=== PATIENT | male | born 1955 | race Caucasian/White ===

== ENCOUNTER 2016-08-10 16:46 | Observation (INO) | payer MEDICARE, OTHER ==
[~2016-08-10] VITALS: Ht 172.7 cm; Wt 77.1 kg
[2016-08-10 16:53] VITALS: BP 133/95
--- NOTE | 2016-08-10 18:12 | NUR ---
PT BIBA TO BED 8 AT THIS TIME.
[2016-08-10] MEDS ORDERED: MULTIVITAMIN-12 10 ML, THIAMINE 100 MG, MAGNESIUM SULFATE 50% 2,000 MG, FOLIC ACID 5 MG... IV ONE ×5 (18:15)
--- NOTE | 2016-08-10 18:16 | NUR ---
61M BIBA C/O ALCOHOL INTOXICATION; PER EMS, PT FOUND "SLEEPING ON THE SIDEWALK" AND "SOMEONE CALLED 911"; PT STATES DRANK 3 BEERS TODAY; A&OX4, PERRL, W/ TACHYCARDIA ON THE MONITOR AT THIS TIME; BL LUNG SOUNDS CLEAR, RR EVEN/UNLABORED, SKIN IS WARM/DRY/INTACT AT THIS TIME; PT DENIES ANY PAIN, N/V/D AT THIS TIME; PT AMBULATORY W/ UNSTEADY GAIT AT THIS TIME; CALM/COOPERATIVE; PT RESTING IN BED W/ HOB ELEVATED AND IN LOWEST POSITION; POSITIONED FOR COMFORT; ER MD MADE AWARE OF STATUS. WILL CONTINUE TO MONITOR.
[2016-08-10] MEDS ORDERED: MULTIVITAMIN-12 10 ML, THIAMINE 100 MG, MAGNESIUM SULFATE 50% 2,000 MG, FOLIC ACID 5 MG... IV SCH ×5 (18:19)
[2016-08-10 18:41] LABS: BASOPHILS # (AUTO) 0.1 K/uL (0.00-0.22); EOSINOPHILS # (AUTO) 0.1 K/uL (0-0.4); HEMOGLOBIN 13.9 g/dL (12.0-18.0); LYMPHOCYTES # (AUTO) 2.4 K/uL (2.0-11.5); LYMPHOCYTES % (AUTO) 42.9 % (20.5-51.1); MEAN CORPUSCULAR HEMOGLOBIN 34 pg (27-31); MEAN CORPUSCULAR HGB CONC 33 g/dL (33-37); MEAN CORPUSCULAR VOLUME 102 fL (80-94); MONOCYTES # (AUTO) 0.4 K/uL (0.8-1.0); NEUTROPHILS # (AUTO) 2.5 K/uL (1.8-7.7); NEUTROPHILS % (AUTO) 47.1 % (42.2-75.2); PLATELET COUNT (AUTO) 206 K/uL (140-450); RED BLOOD CELL COUNT(AUTO) 4.13 MIL/uL (4.20-6.10); RED CELL DISTRIBUTION WIDTH 13.4 % (11.6-13.7); WHITE BLOOD COUNT (AUTO) 5.5 K/uL (4.8-10.8)
[2016-08-10 18:55] LABS: CALCIUM 8.6 mg/dL (8.5-10.1); CARBON DIOXIDE 26.8 mmol/L (21-32); CREATININE 1.1 mg/dL (0.6-1.3); POTASSIUM 3.8 mmol/L (3.5-5.1)
[2016-08-10 19:00] LABS: AMPHETAMINE, URINE NEG. ng/ml (NEG <=1000); BARBITURATE, URINE NEG. ng/ml (NEG <=200); BENZODIAZEPINE, URINE NEG. ng/mL (NEG <=200); CANNABINOID, URINE NEG. ng/mL (NEG <=50); COCAINE, URINE NEG. ng/mL (NEG <=300); OPIATE, URINE NEG. ng/mL (NEG <=2000); PHENCYCLIDINE SCREEN,URINE NEG. ng/mL (NEG <=25)
[2016-08-10 19:00] LABS: ALBUMIN 3.6 g/dL (3.4-5.0); TOTAL BILIRUBIN 0.4 mg/dL (0.0-1.0); TOTAL PROTEIN, SERUM 7.1 g/dL (6.4-8.2)
--- NOTE | 2016-08-10 19:08 | NUR ---
Pt report given to MAR DIEZ. Transfer of care at this time.
--- NOTE | 2016-08-10 19:15 | NUR ---
RECEIVED REPORT FROM ROSALBA MANUEL.
[2016-08-10] MEDS: NACL 0.9% 1,000 ML IV SCH (20:08)
[2016-08-10] MEDS ORDERED: LORazepam 2 MG/ML VIAL IVP PRN (20:10)
[2016-08-10] MEDS ORDERED: ACETAMINOPHEN 325 MG TAB PO PRN (20:10)
[2016-08-10] MEDS ORDERED: ONDANSETRON 4 MG/2 ML VIAL IVP PRN (20:10)
--- NOTE | 2016-08-10 20:45 | NUR ---
Patient will be admitted to care of DR SHARIF. Admited to TELE. Will go to room 108A. Belongings list completed. Report to PAKO MANUEL.
--- NOTE | 2016-08-10 20:45 | NUR ---
Note nathanael in EDM - 08/10/16 at 2157 by CHU Patient will be admitted to care of DR SHARIF. Admited to TELE. Will go to room 108A. Belongings list completed. Report to TRACEY MANUEL.
[2016-08-10 21:00] VITALS: BP 131/77
--- NOTE | 2016-08-10 21:00 | NUR ---
Admitted from ER TO [facility] FOR 23 HOUR OBSERVATION , with chief complaint of ALCOHOL INTOXICATION , 61 y/o ,Male, Cooperative, AWAKE, A/OX3 WITH FORGETFULNESS, ALCOHOL BREATH NOTED. RESPIRATION EVEN AND UNLABORED. IV BANANA BAG INFUSING AT 250 ML/HR RIGHT AC G18. STATED ABLE TO AMBULATE FOR SHORT DISTANCES ONLY BY HIMSELF. HEAD TO TOE ASSESSMENT DONE WITH CHARGE NURSE ALICJA, SKIN INTACT. DENIES PAIN 0/10.oriented to call light, bed, phone,television, bathroom, smoking policy,visiting hours, procedures, ID bracelet on. Belongings list checked.
--- NOTE | 2016-08-10 22:00 | NUR ---
Patient's Plan of Care was discussed and reviewed with CLAIM APPROVER: PAKO FERNÁNDEZ
--- NOTE | 2016-08-10 23:30 | NUR ---
ATE 100% OF SANDWICH GIVEN. BACK TO SLEEP AFTER EATING.
[2016-08-11] VITALS: BP 135/75
[2016-08-11] MEDS: NACL 0.9% 1,000 ML IV SCH ×2 (02:23→10:04)
[2016-08-11 06:30] LABS: BASOPHILS # (AUTO) 0.1 K/uL (0.00-0.22); BASOPHILS % (AUTO) 1.3 % (0.0-2.0); EOSINOPHILS % (AUTO) 0.7 % (0.0-4.0); HEMATOCRIT 41.1 % (36-52); HEMOGLOBIN 13.8 g/dL (12.0-18.0); LYMPHOCYTES # (AUTO) 2.1 K/uL (2.0-11.5); LYMPHOCYTES % (AUTO) 36.5 % (20.5-51.1); MEAN CORPUSCULAR HEMOGLOBIN 34 pg (27-31); MEAN CORPUSCULAR HGB CONC 33 g/dL (33-37); MEAN CORPUSCULAR VOLUME 101 fL (80-94); MONOCYTES # (AUTO) 0.7 K/uL (0.8-1.0); MONOCYTES % (AUTO) 13.1 % (1.7-9.3); NEUTROPHILS # (AUTO) 2.7 K/uL (1.8-7.7); NEUTROPHILS % (AUTO) 48.4 % (42.2-75.2); PLATELET COUNT (AUTO) 206 K/uL (140-450); RED BLOOD CELL COUNT(AUTO) 4.06 MIL/uL (4.20-6.10); RED CELL DISTRIBUTION WIDTH 13.6 % (11.6-13.7); WHITE BLOOD COUNT (AUTO) 5.6 K/uL (4.8-10.8)
[2016-08-11 06:43] LABS: ALBUMIN 3.3 g/dL (3.4-5.0); CALCIUM 8.1 mg/dL (8.5-10.1); CARBON DIOXIDE 27.4 mmol/L (21-32); MAGNESIUM 2.1 mg/dL (1.8-2.4); POTASSIUM 3.4 mmol/L (3.5-5.1); TOTAL BILIRUBIN 0.5 mg/dL (0.0-1.0); TOTAL PROTEIN, SERUM 6.8 g/dL (6.4-8.2)
--- NOTE | 2016-08-11 07:10 | NUR ---
ASSUMED CONTINUITY OF CARE. NO SIGNS AND SYMPTOMS OF ACUTE DISTRESS NOTED. INITIAL ASSESSMENT DONE. KEEP COMFORTABLE ON BED. EXPLAINED DIAGNOSIS, PLAN OF CARE, PAIN MANAGEMENT TEACHING, USE OF CALL LIGHT/BED/TV/BATHROOM. VERBALIZED UNDERSTANDING. FALL PRECAUTION APPLIED. CALL LIGHT WITHIN REACH.
--- NOTE | 2016-08-11 07:10 | NUR ---
ABLE TO SLEEP WELL. FACE STILL FLUSHED LOOKING BUT MORE ORIENTED THAN LAST NIGHT. CONDITION REMAIN STABLE. ENDORSED TO BA GRAY FOR CONTINUITY OF CARE.
[2016-08-11 08:00] VITALS: BP 138/84
--- NOTE | 2016-08-11 08:02 | NUR ---
PATIENT HAS BEEN SCREENED AND CATEGORIZED MODERATE NUTRITION RISK. PATIENT WILL BE SEEN WITHIN 3-5 DAYS OF ADMISSION. 08/13/16-08/15/[address]
[2016-08-11] MEDS ORDERED: ENOXAPARIN 40 MG/0.4 ML SYR SUBQ SCH (09:00)
[2016-08-11] MEDS ORDERED: POTASSIUM CHLORIDE 10 MEQ TABER PO SCH (09:34)
--- NOTE | 2016-08-11 10:50 | NUR ---
WENT TO BATHROOM WITHOUT ASSISTANCE. TOLERATED WELL. NO C/O PAIN. NO SOB, NOTED.
[2016-08-11 12:00] VITALS: BP 149/86
--- NOTE | 2016-08-11 14:00 | NUR ---
SEEN WATCHING TV AT THIS TIME. NO DISCOMFORT NOTICED. CALL LIGHT WITHIN REACH.
--- NOTE | 2016-08-11 15:40 | NUR ---
DR. DAMON CAME, REVIEWED PT. CHART. WILL CHECK ORDERS LATER.
--- NOTE | 2016-08-11 17:30 | NUR ---
EXPLAINED PT. AND PT. -ABBE ABOUT MD D/C ORDER, D/C INSTRUCTIONS AND TEACHING, MD FOLLOW-UP, DISEASE MANAGEMENT TEACHING, PAIN MANAGEMENT TEACHING. PT. AND PT. VERBALIZED UNDERSTANDING.
--- NOTE | 2016-08-11 18:20 | NUR ---
D/C HOME VIA WHEELCHAIR WITH ASSISTANCE FROM JOSH ZAMORANO, ACCOMPANIED BY PT. -ABBE. AWAKE, ALERT, AND ORIENTED X4. SPEECH CLEAR. NO C/O PAIN. NO SOB, NOTED. IN STABLE CONDITION. INFORMED CHARGE NURSE JANNIE DILL.
[2016-08-11] MEDS ORDERED: PNEUMOCOCCAL VACCINE 23 MCG/0.5 ML VIAL IMVAC SCH (21:00)
== END 2016-08-11 18:20 | disposition home or self-care (01) ==
LOC: MED 16:46 → MTU 20:11
PROVIDERS: ADMIT Internal Medicine Pulmonary Disease; ATTEND Internal Medicine Pulmonary Disease
DX: F10.129 Alcohol abuse with intoxication, unspecified (principal); E87.6 Hypokalemia; I10 Essential (primary) hypertension; Y90.8 Blood alcohol level of 240 mg/100 ml or more; Z23 Encounter for immunization
CPT/HCPCS: 36415; 80053; 80305; 83735; 84484; 85025; 87081; 90732; 96361; 96365; 96366; 96372; 99285; A9153; G0378; G0482; J1650; J3411; J3475; J3490; J7030